=== PATIENT | male | born 1990 | race Caucasian/White ===

== ENCOUNTER 2018-08-10 01:49 | Emergency (ER) | payer SELFPAY ==
[2018-08-10 02:31] LABS: BASOPHIL % 0.3 % (0.0-0.4); Basophil (Absolute #) 0.04 (0-0.4); Eosinophil % 1.8 % (0.00-5.0); Eosinophil (Absolute #) 0.22 (0-0.5); Granulocyte Absolute (ANC) 6.67 (1.4-6.9); Granulocytes % 55.4 % (36.0-66.0); Hematocrit 55.3 % (42-50); Hemoglobin 19.9 gm/dl (12.5-18.0); Lymphocyte (Absolute #) 4.06 (1.0-4.6); Lymphocytes % 33.6 % (24.0-44.0); Mean Cell Volume 92.5 fl (78-100); Mean Platelet Volume 10.4 fl (6-9.5); Monocyte (Absolute #) 1.08 (0.0-1.3); Monocytes % 8.9 % (0.0-12.0); Platelet Count 268 K/mm3 (150-450); Red Blood Count 5.98 M/mm3 (4.1-5.6); White Blood Count 12.1 K/mm3 (4.0-10.5)
--- NOTE | 2018-08-10 02:43 | ERPHSYRPT ---
- History of Present Illness Time Seen by Provider: 08/10/18 02:00 Source: patient, EMS, police Exam Limitations: clinical condition Patient Subjective Stated Complaint: intoxicated and brought in by police request Triage Nursing Assessment: Pt was found in the middle of the road by police laying down, stated that he has been drinking vodka all day and all night, answering questions clearly, pulses normal, vitals wnl, doesn't appear to be in any distress Physician History: PATIENT WITH A HISTORY OF DEPRESSION, HOSPITALIZED 10 YEARS FOR DEPRESSION, WAS FOUND BY POLICE LYING IN THE MIDDLE OF [address]HW[address], STATING HE DOES NOT MIND IF HE GETS RAN OVER, ADMIS TO DRINKING VODKA ALL DAY. PATIENT DENIES SUICIDAL IDEATION , HOMOCIDAL IDEATION, OR INGESTION OF STREET DRUGS, VISUAL OR AUDITORY HALLUCINATIONS. Timing/Duration: today Severity of Symptoms-Max: none Severity of Symptoms-Current: none Context related to: other (DENIES COMPLAINTS) Suicidal thoughts: other (DENIES HAVING A PLAN) Previous symptoms: other (HOSPITALIZED FOR DEPRESSION 10 YEARS AGO.) Allergies/Adverse Reactions: No Known Drug Allergies Allergy (Unverified 08/10/18 02:03) Home Medications: No Reportable Medications [No Reported Medications] 08/10/18 [History] - Past Medical History Pertinent Past Medical History: Yes Respiratory History: Asthma Psycho-Social History: Anxiety, Depression - Past Surgical History Past Surgical History: No - Social History Smoking Status: Current every day smoker How long have you smoked: 16 years Patient Lives Alone: No - Review of Systems Constitutional: No Fever, No Chills Eyes: No Symptoms Ears, Nose, & Throat: No Symptoms Respiratory: No Symptoms, No Cough, No Dyspnea Cardiac: No Symptoms, No Chest Pain, No Edema, No Syncope Abdominal/Gastrointestinal: No Abdominal Pain, No Nausea, No Vomiting, No Diarrhea Genitourinary Symptoms: No Symptoms, No Dysuria Musculoskeletal: No Symptoms, No Back Pain, No Neck Pain Skin: No Symptoms, No Rash Neurological: No Symptoms, No Dizziness, No Focal Weakness, No Sensory Changes Psychological: No Symptoms Endocrine: No Symptoms All Other Systems: Reviewed and Negative - Nursing Vital Signs Nursing Vital Signs: Initial Vital Signs Temperature 97.8 F 08/10/18 01:51 Pulse Rate 94 H 08/10/18 01:51 Blood Pressure 138/92 08/10/18 01:51 O2 Sat by Pulse Oximetry 96 08/10/18 01:51 Pain Scale Pain Intensity 0 - Physical Exam General Appearance: no apparent distress Eyes, Ears, Nose, Throat Exam: normal ENT inspection, moist mucous membranes Neck Exam: normal inspection, non-tender, supple Respiratory Exam: normal breath sounds, lungs clear, No respiratory distress Cardiovascular Exam: regular rate/rhythm, No edema Gastrointestinal/Abdominal Exam: soft, No tenderness, No distention Extremities Exam: normal inspection, normal range of motion, No evidence of injury, No edema Peripheral Pulses: carotid (R): 2+, carotid (L): 2+, femoral (R): 2+, femoral (L ): 2+, dorsalis-pedis (R): 2+, dorsalis-pedis (L): 2+ Current Suicidality: denies suicide plan Neurological Exam: alert, angle bender II-XII nml as tested, oriented x 3 Appearance: appropriate appearance, appropriate insight Behavior/Eye Contact/Speech: alert & cooperative, cooperative, good eye contact Thoughts/Hallucinations: normal thought pattern, no apparent hallucination, auditory hallucinations Skin Exam: normal color, warm, dry, No rash SpO2: 96 Oxygen Delivery: Room Air Ordered Tests: Active Orders 24 hr Category Date Time Status BMP Stat Lab 08/10/18 02:20 Completed CBC W DIFF Stat Lab 08/10/18 02:20 Completed ETHYL ALCOHOL Stat Lab 08/10/18 02:20 Completed Urine Triage Profile Stat Lab 08/10/18 05:03 Completed Lab/Rad Data: Laboratory Result Diagrams 08/10/18 02:20 08/10/18 02:20 Laboratory Results 08/10/18 08/10/18 08/10/18 Range/Units 05:03 02:20 02:20 WBC 12.1 H (4.0-10.5) K/mm3 RBC 5.98 H (4.1-5.6) M/mm3 Hgb 19.9 H (12.5-18.0) gm/dl Hct 55.3 H (42-50) % MCV 92.5 (78-100) fl MCH 33.2 H (26-32) pg MCHC 36.0 (32-36) g/dl RDW 13.0 (11.5-14.0) % Plt Count 268 (150-450) K/mm3 MPV 10.4 H (6-9.5) fl Gran % 55.4 (36.0-66.0) % Eos # (Auto) 0.22 (0-0.5) Absolute Lymphs (auto) 4.06 (1.0-4.6) Absolute Monos (auto) 1.08 (0.0-1.3) Lymphocytes % 33.6 (24.0-44.0) % Monocytes % 8.9 (0.0-12.0) % Eosinophils % 1.8 (0.00-5.0) % Basophils % 0.3 (0.0-0.4) % Absolute Granulocytes 6.67 (1.4-6.9) Basophils # 0.04 (0-0.4) Sodium 146 H (137-145) mmol/L Potassium 4.1 (3.5-5.1) mmol/L Chloride 103 (98-107) mmol/L Carbon Dioxide 32 H (22-30) mmol/L Anion Gap 15.1 H (5-15) MEQ/L BUN 9 (9-20) mg/dL Creatinine 1.19 (0.66-1.25) mg/dL Estimated GFR > 60.0 ML/MIN Glucose 117 H (74-106) mg/dL Calcium 9.0 (8.4-10.2) mg/dL Urine Opiates Level NEGATIVE (NEGATIVE) Ur Methadone NEGATIVE (NEGATIVE) Urine Barbiturates NEGATIVE (NEGATIVE) Ur Phencyclidine (PCP) NEGATIVE (NEGATIVE) Urine Amphetamine POSITIVE (NEGATIVE) U Benzodiazepine Level NEGATIVE (NEGATIVE) Urine Cocaine NEGATIVE (NEGATIVE) Urine Marijuana (THC) NEGATIVE (NEGATIVE) Ethyl Alcohol 181 H (0-10) mg/dL - Progress Discussed with : Other (DISCUSSED WITH DR LOWERY AT 0630 OF [facility] ACCEPTS PATIENT TO PSYCHIATRIC UNIT) Counseled pt/family regarding: lab results, diagnosis - Departure Time of Disposition: 07:00 Departure Disposition: Transfer Clinical Impression: DEPRESSION, ALCOHOL INTOXICATION, SUBSTANCE ABUSE Condition: Stable Critical Care Time: No Referrals: Provider,Unknown [Primary Care Provider] -
[2018-08-10 02:44] LABS: Mean Corpuscular Hemoglobin 33.2 pg (26-32)
[2018-08-10 02:50] LABS: ANION GAP 15.1 MEQ/L (5-15); BLOOD UREA NITROGEN 9 mg/dL (9-20); CHLORIDE 103 mmol/L (98-107); Carbon Dioxide 32 mmol/L (22-30); Creatinine 1 1.19 mg/dL (0.66-1.25); ETHYL ALCOHOL 181 mg/dL (0-10); Glucose 117 mg/dL (74-106); Potassium 4.1 mmol/L (3.5-5.1); SODIUM 146 mmol/L (137-145)
[2018-08-10 05:26] LABS: Barbiturate,Urine NEGATIVE (NEGATIVE); Benzodiazepine,Urine NEGATIVE (NEGATIVE); Cocaine,Urine NEGATIVE (NEGATIVE); Methadone,Urine NEGATIVE (NEGATIVE); Opiate,Urine NEGATIVE (NEGATIVE); PCP,Urine NEGATIVE (NEGATIVE); THC,Urine NEGATIVE (NEGATIVE)
[2018-08-10 06:31] VITALS: BP 130/93; PULSE 84
[2018-08-10 06:44] VITALS: O2SAT 96
[2018-08-10 07:36] LABS: Amphetamine,Urine POSITIVE (NEGATIVE)
== END 2018-08-10 07:19 | disposition short-term general hospital (02) ==
LOC: ED 01:49
DX: F32.9 Major depressive disorder, single episode, unspecified (principal); F10.129 Alcohol abuse with intoxication, unspecified; F19.10 Other psychoactive substance abuse, uncomplicated
CPT/HCPCS: 36415; 80048; 80307; 85025; 99284; 99285; G0480